=== PATIENT | female | born 1990 | race Caucasian/White ===

== ENCOUNTER 2016-11-20 14:44 | Emergency (ER) | payer SELFPAY ==
[~2016-11-20] VITALS: Ht 157.5 cm; Wt 85.3 kg
[2016-11-20 15:02] VITALS: BP 131/90
[2016-11-20 15:50] LABS: APPEARANCE,URINE CLEAR (CLEAR); BILIRUBIN,URINE NEGATIVE (NEGATIVE); BLOOD, URINE NEGATIVE (NEGATIVE); COLOR,URINE YELLOW (YELLOW); LEUKOCYTE ESTERASE ,URINE NEGATIVE (NEGATIVE); NITRITE, URINE NEGATIVE (NEGATIVE); PH,URINE 6.5 (5.0-9.0); UGLUCOSE NEGATIVE (NEGATIVE)
--- NOTE | 2016-11-20 16:28 | NUR ---
Patient ambulated to bed 4. RN evaluating patient at bedside.
--- NOTE | 2016-11-20 16:29 | NUR ---
6F BIB [facility] C/O INTERMITTENT URINARY BURNING AND FREQUENCY X 2 YEARS, CONSTANT X 1 MONTH, WITH LEFT FLANK PAIN X TODAY. DENIES N/V/D; SKIN IS PINK/WARM/DRY; AAOX4 WITH EVEN AND STEADY GAIT; LUNGS CLEAR BL; HR EVEN AND REGULAR; PT DENIES ANY FEVER, CP, SOB, OR COUGH AT THIS TIME; PATIENT STATES PAIN OF 9/10 AT THIS TIME; PATIENT POSITIONED FOR COMFORT; HOB ELEVATED; BEDRAILS UP X2; BED DOWN. ER MD MADE AWARE OF PT STATUS.
--- NOTE | 2016-11-20 16:44 | NUR ---
Dr. Rawls evaluating patient at bedside.
--- NOTE | 2016-11-20 17:10 | NUR ---
Dr. Rawls at bedside for pelvic exam. Accompanied by SUE Holbrook.
--- NOTE | 2016-11-20 17:59 | NUR ---
Dr. Rawls reevaluating patient at bedside.
[2016-11-20 18:07] VITALS: BP 122/87
--- NOTE | 2016-11-20 18:07 | NUR ---
Patient discharged with v/s stable. Written and verbal after care instructions given and explained. Patient alert, oriented and verbalized understanding of instructions. Ambulatory with steady gait. All questions addressed prior to discharge. ID band removed. Patient advised to follow up with PMD. Rx of FLAGYL given. Patient educated on indication of medication including possible reaction and side effects. Opportunity to ask questions provided and answered.
== END 2016-11-20 18:07 | disposition home or self-care (01) ==
LOC: MED 14:44
DX: N76.0 Acute vaginitis (principal)
CPT/HCPCS: 36415; 81003; 81025; 87210; 99284

== ENCOUNTER 2016-12-11 13:13 | Emergency (ER) | payer SELFPAY ==
[~2016-12-11] VITALS: Ht 157.5 cm; Wt 85.7 kg
[2016-12-11 13:27] VITALS: BP 119/85
--- NOTE | 2016-12-11 13:40 | NUR ---
PT TO BED 8
--- NOTE | 2016-12-11 13:48 | NUR ---
26 F BIB SELF WITH C/O DYSURIA X 6 MONTH BUT INTERMITTENTLY THE PAST 2 YEARS; PATIENT SEEN WITH SAME SYMPTOMS X2 WKS. AGO WITH PRESCRIPTION OF FLAGYL; PT STATES SHE FINISHED ABX; PT DENIES ANY VAGINAL DISCHARGE, ABD PAIN, N/V/D, LOWER BACK BACK OR PAIN AT THIS TIME; SKIN IS PINK/WARM/DRY; AOX4 WITH EVEN AND STEADY GAIT; RR ARE EVEN AND UNLABORED; VSS; PATIENT POSITIONED FOR COMFORT; HOB ELEVATED; BED DOWN. ER MD MADE AWARE OF PT STATUS.
[2016-12-11 14:23] LABS: APPEARANCE,URINE CLEAR (CLEAR); BILIRUBIN,URINE NEGATIVE (NEGATIVE); BLOOD, URINE 1+ (NEGATIVE); COLOR,URINE YELLOW (YELLOW); LEUKOCYTE ESTERASE ,URINE NEGATIVE (NEGATIVE); NITRITE, URINE NEGATIVE (NEGATIVE); UGLUCOSE NEGATIVE (NEGATIVE)
[2016-12-11 14:36] LABS: RBC,URINE 3-10 (FEW) /HPF (0-5); WBC,URINE 0-5 (RARE) /HPF (0-5)
[2016-12-11 14:49] VITALS: BP 117/79
--- NOTE | 2016-12-11 14:49 | NUR ---
Patient discharged with v/s stable. Written and verbal after care instructions given and explained. Patient verbalized understanding. Ambulatory with steady gait. All questions addressed prior to discharge. Advised to follow up with PMD.
== END 2016-12-11 14:49 | disposition home or self-care (01) ==
LOC: MED 13:13
DX: N76.0 Acute vaginitis (principal)
CPT/HCPCS: 36415; 81001; 81025; 87086; 99284